=== PATIENT | male | born 1955 | race Caucasian/White ===

== ENCOUNTER 2016-12-31 14:01 | Outpatient (CLI) | payer OTHER ==
[2016-12-31 16:38] LABS: ALT (SGPT) 45 U/L (8-55); AST (SGOT) 31 U/L (5-34); Albumin 4.4 g/dL (3.5-5.0); Alkaline Phosphatase 85 U/L (40-150); Anion Gap 19 mmol/L (10-20); BUN (Urea Nitrogen) 32 mg/dL (8.4-25.7); Bilirubin, Total 0.4 mg/dL (0.2-1.2); Calc. Creatinine Clearance 0 mL/min (70-130); Carbon Dioxide 25 mmol/L (22-29); Chloride 98 mmol/L (98-107); Estimated GFR-MDRD 28; Globulin 3.6 g/dL (2.4-3.5); Glucose 237 mg/dL (70-105); Potassium 4.6 mmol/L (3.5-5.1); Sodium 137 mmol/L (136-145)
--- NOTE | 2017-01-01 07:31 | RAD ---
RIGHT SHOULDER 3 VIEWS: Date: 12/31/16 HISTORY: Right shoulder pain, disability evaluation. FINDINGS/IMPRESSION: Postop changes are seen in the right proximal humerus. There is an acromial spur which may cause imp ingement of the rotator cuff tendons. If there is concern for rotator cuff impingement or tear, MRI would be helpful. POS: [facility]
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
--- NOTE | 2017-01-01 07:31 | RAD ---
LEFT ELBOW 2 VIEWS: HISTORY: Disability evaluation. FINDINGS: There are arthritic changes of the elbow. This includes some minimal spur formation of the region o f the capitellum. There is no joint effusion or fracture. IMPRESSION: Minimal arthritic change of the elbow. POS: [facility]
--- NOTE | 2017-01-01 07:31 | RAD ---
TWO VIEWS LEFT SHOULDER: DATE: 12/31/16. HISTORY: Disability evaluation. FINDINGS: There is no evidence of a fracture, dislocation, or other osseous abnormality. IMPRESSION: No acute osseous abnormality involving the left shoulder. POS: [facility]
== END 2016-12-31 14:02 | disposition home or self-care (01) ==
LOC: NAV LAB 14:01
PROVIDERS: ATTEND Family Medicine
DX: Z02.71 Encounter for disability determination (principal); M75.91 Shoulder lesion, unspecified, right shoulder; Z98.890 Other specified postprocedural states
CPT/HCPCS: 80053